=== PATIENT | male | born 1990 | race African-American/Black ===

== ENCOUNTER 2017-03-28 17:19 | Emergency (ER) | payer OTHER ==
--- NOTE | ~2017-03-28 | CR285 ---
[facility] A Service of [facility] & [facility] RADIOLOGY TEXT RESULTS PATIENT: ZION PETERSON LOCATION: CFTX : [birth year] UNIT #: [id number] AGE: [address]: Sabra Delgado SEX: M ORDER DR: [id number] [facility] [address] [place], [place] [address] [id number] E MR#: [id number] Acc #: [id number] NAME: ZION PETERSON : 1990 SEX: M STUDY DATE/TIME: 03/28/2017 17:40 UNIT: [facility] ROOM: STUDY DESCRIPTION: CR Wrist W Navicular Min 3 Lt Attending Physician: Sabra Delgado P.A.-C. Ordering Physician: Heber Joy M.D. Primary Care Physician: No Primary Care Physician MEDICAL IMAGING REPORT This report is preliminary unless electronic signature is present EXAM Left wrist series. HISTORY Fell on it playing basketball. Pain, distorted, swelling, fracture today. TECHNIQUE AP, lateral, and oblique radiographs of the left wrist are presented. There is a comminuted fracture of the distal left radial shaft at a level about 11 mm from the radial articular surface. Dominant fracture plane is transverse. The distal fracture fragments are angled posteriorly. There is probably a nondisplaced oblique fracture plane along the radial styloid process. I believe this fracture plane may enter the radiocarpal joint space. There is probably an oblique fracture along the ulnar aspect of the dominant distal fracture fragment. Again, no significant distraction or displacement. The radiocarpal joint remains located. The carpal bones themselves are intact. I am concerned that there is a hairline nondisplaced fracture of the ulnar styloid process. There is circumferential soft tissue swelling, more pronounced along the anterior, posterior, and ulnar aspects of the wrist. No soft tissue defect or subcutaneous air. Dictated by... Geovanny Lisa M.D. THIS IS AN ELECTRONICALLY VERIFIED REPORT Geovanny Lisa M.D. at 03/29/2017 6:54 PM ASHA/oli TD: 03/29/2017 10:48 JOB #: [id number] [facility] A Service of [facility] & [facility] RADIOLOGY TEXT RESULTS PATIENT: ZION PETERSON [id number] [birth year] UNIT #: [id number] AGE: [address]: Sabra Delgado SEX: M ORDER DR: MEDICAL IMAGING REPORT Page 1 of 1 COPY
[2017-03-31] MEDS ORDERED: IBUPROFEN800 MG PO (10:06)
[2017-03-31] MEDS ORDERED: HYDROCODON-ACE1 EA14 PO (10:06)
== END 2017-03-28 19:15 | disposition home or self-care (01) ==
LOC: CFTX 17:19 → CED 17:19 → CFTX 18:13
DX: S52.502A Unspecified fracture of the lower end of left radius, initial encounter for closed fracture (principal); W19.XXXA Unspecified fall, initial encounter; Y93.67 Activity, basketball; Y92.9 Unspecified place or not applicable
CPT/HCPCS: 73110; 96372; 99283; J2270

== ENCOUNTER → 2017-03-31 | Day surgery (SDC) | payer OTHER ==
[~2017-03-31] MED LIST: HYDROCODON-ACE1 EA14 PO; IBUPROFEN800 MG PO
--- NOTE | ~2017-03-31 | OR ---
Unit #: [id number] #: [id number] Patient: AMADO PETERSON [id number] [address] [address] [id number] O MR#: [id number] NAME: AMADO PETERSON ROOM: Date of Procedure: 03/31/2017 Admission Date: 03/31/2017 Surgeon: Ramesh Meadows M.D. : 1990 Attending Physician: Ramesh Meadows M.D. Referring Physician: Ramesh Meadows M.D. OPERATIVE REPORT PREOPERATIVE DIAGNOSIS Left comminuted intra-articular distal radius fracture. POSTOPERATIVE DIAGNOSIS Left comminuted intra-articular distal radius fracture. PROCEDURE PERFORMED Open reduction and internal fixation of left distal radius fracture consisting of 3 more distal fragments. IMPLANTS [employer] DVR standard width and length distal radius plate. MANAGER MASS Micki Li. ANESTHESIA General with regional nerve block. ESTIMATED BLOOD LOSS Minimal. COMPLICATIONS None apparent. INDICATIONS FOR PROCEDURE Amado is a 26-year-old gentleman, who sustained an injury to his left distal radius fracture while playing basketball. This is a comminuted intra-articular distal radius fracture. We discussed operative intervention with open reduction and internal fixation. He elected to proceed. DESCRIPTION OF PROCEDURE The patient was identified in the preoperative holding area. The operative site was marked. A regional block was performed. Preoperative antibiotics were administered. The patient was brought to the operating room and placed supine in the operating table. General anesthetic was induced. The left upper extremity was identified. A tourniquet was applied. The left arm was then prepped and draped in sterile fashion. The arm was exsanguinated and the tourniquet inflated. An incision was made overlying the FCR tendon. Dissection was carried down through the Unit #: [id number] #: [id number] Patient: AMADO PETERSON subcutaneous tissues through the tendon itself. This was mobilized in an ulnar direction and then dissection carried down to the floor of the FCR. We then carried the dissection down to the FPL and dissected this again mobilizing in an ulnar direction. The radial artery itself was not formally dissected out in the surgical field. Dissection was carried down to the pronator quadratus, which was incised in an L type fashion and elevated off the distal radius. The brachioradialis was eventually elevated up off the styloid fragment as well. There were at least 3 fragments. There was a radial styloid fragment. A separate lunate facet fragment and then a scaphoid facet fragment. There was also a dorsal comminuted fragment. The fracture was provisionally pinned in place with the radial styloid pin after adequate reduction was obtained. A standard width plate was selected. This was provisionally pinned in place. It was adjusted slightly distally. We then proceeded with fixation initially distally with smooth pegs. This was performed with the plate elevated off the shaft proximally somewhat. We placed all smooth locking pegs, removing K-wires as we went. We had one fully-threaded cortical screw in the oblong screw hole in the shaft, which was then completely seated. Once we had completed our distal fixation, we then fully seated the shaft screw recreating further volar tilt of the distal segment. We placed 2 more fully threaded screws in the shaft. The plate was somewhat on the ulnar aspect of the radius. We did achieve bicortical purchase with all 4 screws. As we had already placed the majority of our pegs before appreciating this, we elected to leave the plate in its position. This was going to compromise distal fixation and tried to adjust it further. Final images were obtained and demonstrated anatomic reduction with satisfactory hardware placement. The wound was then irrigated. The tourniquet was deflated. Hemostasis was achieved. The wound was then closed in a layered fashion with 2-0 Vicryl and 3-0 nylon. The patient was placed into a well-padded volar splint. DISPOSITION Stable to the recovery room. Dictated by... Esthela Andersen/aguila TD: 04/01/2017 09:11 JOB #: [id number] OPERATIVE REPORT Page 1 of 1 X Ramesh Meadows MD PROCEDURE OPERATIVE NOTE
--- NOTE | ~2017-03-31 | CR281 ---
[facility] A Service of [facility] & [facility] RADIOLOGY TEXT RESULTS PATIENT: ZINO PETERSON LOCATION: [facility] : [birth year] UNIT #: [id number] AGE: [address]: Ramesh Meadows MD SEX: M ORDER DR: [id number] [facility] [address] [place], [place] [address] [id number] O MR#: [id number] Acc #: [id number] NAME: ZION PETERSON : 1990 SEX: M STUDY DATE/TIME: 03/31/2017 13:42 UNIT: [facility] ROOM: STUDY DESCRIPTION: CR Wrist Min 3 View Lt Attending Physician: Ramesh Meadows M.D. Referring Physician: Ramesh Meadows M.D. Ordering Physician: Ramesh Meadows M.D. Primary Care Physician: Primary Care Physician No MEDICAL IMAGING REPORT This report is preliminary unless electronic signature is present EXAM C-arm fluoroscopy with 5 permanent images of the left wrist 03/31/2017 HISTORY ORIF left wrist fracture FINDINGS C-arm fluoroscopy was provided for use in the operating room. 5 spot film radiographs of the left wrist were obtained in the anterior and lateral projections documenting placement of a surgical plate and screws across the distal radius. The bones are in anatomic alignment. 49 seconds of fluoroscopy time was utilized. Dictated by... Ramesh Kirby M.D. THIS IS AN ELECTRONICALLY VERIFIED REPORT Ramesh Kirby M.D. at 04/01/2017 2:25 PM KRT/to TD: 03/31/2017 15:13 JOB #: [id number] MEDICAL IMAGING REPORT Page 1 of 1 COPY
== END | disposition home or self-care (01) ==
LOC: CSUR 08:57
DX: S52.572A Other intraarticular fracture of lower end of left radius, initial encounter for closed fracture (principal); Y93.67 Activity, basketball
CPT/HCPCS: 73110; 76000; C1713; J0690; J2250; J2405; J3010